=== PATIENT | female | born 1980 | race Caucasian/White ===

== ENCOUNTER 2019-12-10 19:35 | Inpatient (IN) | payer OTHER, SELFPAY ==
[2019-12-10 19:42] VITALS: BMI 29.8
[2019-12-10] MEDS: Lactated Ringers 1,000 ML 50 ML IV (20:30)
[2019-12-10] MEDS: miSOPROStol 25 MCG TABLET VAGINAL (20:43)
[2019-12-10 20:52] LABS: Absolute Lymphocyte Count 2.66 X10^3/uL (0.83-4.51); Absolute Neutrophil Count 6.5 X10^3/uL (2.0-7.7); Basophil# 0.07 X10^3/uL; Basophil% 0.7 % (0-1); Eosinophil# 0.07 X10^3/uL; Eosinophils% 0.7 % (0-5); Hematocrit 37.4 % (37-47); Hemoglobin 12.6 g/dL (12.0-15.0); Lymphocyte # 2.66 X10^3/ul (4.0); Lymphocyte % 26.7 % (19-41); Mean Corp Hgb Conc 33.7 g/dL (32-36); Mean Corpuscular Hgb 30.5 pg (27.0-32.0); Mean Corpuscular Volume 90.6 fL (81-99); Mean Platelet Vol. 10.4 fl (6.2-12.0); Monocyte# 0.63 X10^3/uL; Monocyte% 6.3 % (0-10); NRBC Flagged by Analyzer 0 % (0-5); Neutrophil # 6.47 X10^3/uL (2.7-7.7); Neutrophil % 64.9 % (47-70); Platelet Count 246 K/mm3 (150-450); RBC Distribution Width CV 13.3 % (11.6-14.6); RBC Distribution Width SD 43.8 fl (35.1-43.9); Red Blood Count 4.13 M/mm3 (4.2-5.4)
[2019-12-11] MEDS: Lactated Ringers 500 ML 999 ML IV ×3 (03:23→10:44)
[2019-12-11] MEDS: 0.9% Saline Lock 10 ML Syringe IV (03:28)
[2019-12-11] MEDS: Ondansetron 4 MG/2 ML Vial IV (03:46)
[2019-12-11] MEDS: fentaNYL-bupivacaine (epidural) 100 ML BAG EPIDURAL ×2 (04:20→08:55)
--- NOTE | 2019-12-11 07:07 | PCM.HP.OB ---
- Problem List (1) Hypothyroidism Status: Acute (2) Bipolar disease in Status: Acute (3) Advanced maternal age (AMA) in Status: Acute (4) Polyhydramnios Status: Acute History Date of Admission: 12/10/19 Final RANJIT: 12/17/19 Gestational age: 39 Weeks and 1 Days History of this : This is a 39 year-old, G1, P0, at 39 weeks gestational age who presents for scheduled IOL for AMA and polyhydramnios. Allergies haloperidol [From Haldol] Allergy (Verified 12/10/19 19:44) Hives methylchloroisothiazolinone Allergy (Verified 12/10/19 19:51) Hives methylisothiazolinone Allergy (Verified 12/10/19 19:51) Hives Penicillins Allergy (Verified 12/10/19 19:44) Hives thimerosal Allergy (Verified 12/10/19 19:50) Hives Home Medications: Home Medications Levothyroxine Sodium [Synthroid] 125 mcg PO DAILY 12/10/19 Pnv No.95/Ferrous Fum/Folic AC [ Formula Tablet] 1 tab PO DAILY 12/10/19 Smoking Status: Never smoker Number of Fetus(es): 1 NST - FHR Rate Baby A NST Reactive:: Yes FHR Category:: Category I History Past Pregnancies: Past Pregnancies Delivery Date Name GA/ Weeks Outcome Route Wt Infant Sex Labor Length Anesthesia Delivery Location Provider FOB Labs: GBS neg YELITZA 28 cm, EFW 96% LGA Hgb 11.1 1 hr GTT 89 NIPT neg Syphilis NR RI Hep B neg HIV NR Rh positive Ab screen neg UDS neg GC/CT neg Expected Delivery Method: Spontaneous Vaginal Review of Systems Gynecological: Reports: - - +CTx and FM. No vb, lof Physical Exam General: Alert, No apparent distress HEENT: Atraumatic Abdomen: Soft, Non Tender, Gravid Extremities:: No edema Neurological: Neuro grossly intact Presentation: Cephalic Cervix Dilation (cm): 3 - per RN Station: -3 Assessment/Plan All Active Problems Hypothyroidism (Acute) Bipolar disease in (Acute) Advanced maternal age (AMA) in (Acute) Polyhydramnios (Acute) This is a 39 year-old, G 1, P 0, at 39 weeks gestational age who scheduled IOL for AMA and polyhydramnios. - YELITZA 28 cm, EFW 8 lb 4 oz at 37 wks - Admit for routine intrapartum care - Cytotec induction - GBS neg - Epidural prn - Pelvis adequate and EFW < 5000 g, anticipate
[2019-12-11] MEDS: Oxytocin 30 units/NS 500 ml 30 UNITS/500 ML IV.SOLN IV (07:23)
[2019-12-11] MEDS: Lactated Ringers 1,000 ML 200 ML IV (07:24)
[2019-12-11] MEDS: Oxytocin 30 units/NS 500 ml 30 UNITS/500 ML IV.SOLN 334 UNITS IV (13:20)
--- NOTE | 2019-12-11 13:53 | PCM.OPRPT ---
Vaginal Delivery Maternal Presentation: Medically Indicated Induction Method of Induction: Cytotec Medical Reason for Induction: - - advanced maternal age Amniotic Membrane Rupture Type: Artificial Amniotic Fluid Description: Clear Final RANJIT: 12/17/19 Gestational age: 39 Weeks and 1 Days Date of Procedure: 12/11/19 Pre-Operative Diagnosis: labor, maternal exhaustion Post-Operative Diagnosis: same Surgery/ Procedure Performed: Vacuum Assisted Vaginal Delivery - outlet Type of Anesthesia: Epidural Description of Procedure: Patient was complete and pushing for over 2 hours. When I arrived, the position was CARLOS. The head was labia approximately 3 cm and the skull was at +4 station. Penaloza catheter was in place, pelvis was felt to be clinically adequate and estimated weight was less than 4500 g. Epidural was adequate. Patient was giving good effort but had not made significant descent in over 30 minutes. I discussed with her and her at this point a trial of vacuum-assisted vaginal delivery. Our discussion, gave him some time to consider it and they desire to proceed. The vacuum was placed over the flexion point and the vacuum created to 550 mmHg. I pulled with 1 pull and no pop offs to . The vacuum was then removed. On the next contraction the patient delivered the head spontaneously over a second-degree perineal laceration. The remainder the was delivered with maternal pushing and gentle traction only in less than 15 seconds. The Pitocin infusion was initiated for active management of the third stage. The cord was clamped and cut after pulsations ceased. The was attended to by the waiting nursing staff. The placenta was delivered spontaneously and intact. The cervix was intact. The second-degree perineal laceration left vaginal vault laceration was repaired with 3-0 Vicryl suture in a running standard fashion. Sponge and needle counts were correct. A vaginal sweep was completed by me. Presentation: CARLOS Placental Delivery Description: Spontaneous Placenta Disposition: [facility] Cord Vessel Description: 3 Vessels Cord Entanglement: None Drain: Penaloza to straight drain Estimated Blood Loss: 500 Infant A gender: Male (1 minute): 8 - Angel (5 minute): 9 Episiotomy Description: None Laceration: Vaginal Extension/lac - left, 2nd degree Medications given after delivery: IV Pitocin Complications: None
[2019-12-11 17:12] VITALS: BP 113/64; PULSE 99; RESP 16; TEMP 36.6; O2SAT 100
--- NOTE | 2019-12-11 17:34 | NURSING ---
epidural catheter removed at this time. blue tip intact. Band-aid placed at epidural insertion site.
[2019-12-11] MEDS: Acetaminophen 500 MG Tablet 1000 MG PO (19:48)
[2019-12-11 20:15] VITALS: BP 110/67; PULSE 62; RESP 16; TEMP 37.2
[2019-12-11] MEDS: Naproxen 250 MG Tablet 500 MG PO (20:30)
[2019-12-11 23:50] VITALS: BP 124/77; PULSE 90; RESP 16; TEMP 37.2
[2019-12-12 03:01] VITALS: BP 97/58; PULSE 70; RESP 16; TEMP 36.9
[2019-12-12] MEDS: Acetaminophen 500 MG Tablet 1000 MG PO ×2 (03:49→15:32)
[2019-12-12] MEDS: Naproxen 250 MG Tablet 500 MG PO ×3 (04:12→22:08)
[2019-12-12] MEDS: Levothyroxine 125 MCG Tablet PO (06:02)
[2019-12-12 06:16] LABS: Hematocrit 33.7 % (37-47); Hemoglobin 11.6 g/dL (12.0-15.0); Mean Corp Hgb Conc 34.4 g/dL (32-36); Mean Corpuscular Hgb 31.3 pg (27.0-32.0); Mean Corpuscular Volume 90.8 fL (81-99); Mean Platelet Vol. 10.1 fl (6.2-12.0); Platelet Count 226 K/mm3 (150-450); RBC Distribution Width CV 13.3 % (11.6-14.6); RBC Distribution Width SD 43.6 fl (35.1-43.9); Red Blood Count 3.71 M/mm3 (4.2-5.4); White Blood Count 20.3 K/mm3 (4.4-11.0)
[2019-12-12] MEDS: Senna/Docusate Sodium 1 Tablet PO (08:07)
[2019-12-12] MEDS: Dibucaine 30 GM Tube 1 APPLIC TOPICAL (08:08)
--- NOTE | 2019-12-12 08:28 | PCM.PN.OB ---
Patient Problems: Active and Suspected Problems Hypothyroidism (Acute) Bipolar disease in (Acute) Advanced maternal age (AMA) in (Acute) Polyhydramnios (Acute) Subjective: Patient doing well. Perineum is sore. Pain is well controlled. Ambulating and voiding without difficulty. Tolerating regular diet without nausea or vomiting. She denies lightheadedness, dizziness, chest pain, shortness of breath, leg pain. Lochia normal. She is breast-feeding. - Physical Exam Vitals/I&O's: Vital Signs Temp Pulse Resp BP Pulse Ox 98.5 F 70 16 97/58 L 100 12/12/19 03:01 12/12/19 03:01 12/12/19 03:01 12/12/19 03:01 12/11/19 17:12 Oxygen Delivery Method Room Air Weight: 202 lb 3.2 oz Body Mass Index (BMI) 29.8 Intake and Output for Last 24 Hours 12/10/19 12/11/19 12/12/19 23:59 23:59 23:59 Intake Total 4872.44 / 4872.44 Output Total 6550 / 6550 Balance -1677.56 / -1677.56 General: Alert, No apparent distress HEENT: Atraumatic Abdomen: Soft, Non Tender, - - FF@U-1 Extremities: No edema, No Calf Tenderness Skin: No rashes Neurological: Neuro grossly intact Psych/Mental Status: Normal Affect, Appropriate Laboratory Results 12/12/19 06:06: WBC 20.3 H, RBC 3.71 L, Hgb 11.6 L, Hct 33.7 L, MCV 90.8, MCH 31.3, MCHC 34.4, RDW Std Deviation 43.6, RDW Coeff of Howard 13.3, Plt Count 226, MPV 10.1 Current Medications Acetaminophen (Tylenol) 1,000 mg PO Q8H PRN PRN PRN Reason: Pain Score 1-3/10 Last Admin: 12/12/19 03:49 Dose: 1,000 mg Documented by: Bisacodyl (Dulcolax) 10 mg RECTAL UD PRN PRN Reason: If no BM Dibucaine (Dibucaine) 1 applic TOPICAL TID PRN PRN; Protocol PRN Reason: Discomfort Last Admin: 12/12/19 08:08 Dose: 1 applicatio Documented by: Hydrocortisone (Hytone) 1 applic TOPICAL TID PRN PRN; Protocol PRN Reason: Discomfort Levothyroxine Sodium (Synthroid) 125 mcg PO DAILY@0600 KODY Last Admin: 12/12/19 06:02 Dose: 125 mcg Documented by: Methylergonovine Maleate (Methergine) 0.2 mg IM X1 PRN PRN Reason: Excess bleeding/uterine atony Naproxen (Naprosyn) 500 mg PO Q8H PRN PRN PRN Reason: Pain Score 1-3/10 Last Admin: 12/12/19 04:12 Dose: 500 mg Documented by: Ondansetron HCl (Zofran) 4 mg IV Q4H PRN PRN PRN Reason: Nausea Oxycodone HCl (Oxyir) 5 - 10 mg PO Q4H PRN PRN PRN Reason: Pain Score 4-10/10 Senna/Docusate Sodium (Senokot-S, Tasha-Colace) 1 - 2 tablet PO DAILY PRN PRN PRN Reason: Constipation Last Admin: 12/12/19 08:07 Dose: 2 tablet Documented by: Simethicone (Mylicon) 80 mg PO PCHS PRN PRN Reason: Indigestion/Stomach pain Sodium Chloride () 5 - 15 ml IV UD PRN PRN Reason: SALINE FLUSH Medical Necessity - Tobacco Use Smoking Status: Never smoker Assessment/Plan All Active Problems Hypothyroidism (Acute) Bipolar disease in (Acute) Advanced maternal age (AMA) in (Acute) Polyhydramnios (Acute) PPD#1 s/p - Doing well - with difficultly latching. to see today - Dispo: Routine care
[2019-12-12 08:29] VITALS: BP 105/61; PULSE 74; RESP 16; TEMP 36.6
[2019-12-12 11:45] VITALS: BP 114/57; PULSE 97; RESP 14; TEMP 36.9
--- NOTE | 2019-12-12 13:50 | CASEMGMT ---
Social Work Labor and Delivery Unit Notified by nursing staff of need for social work consult due to maternal history of bipolar disorder. Chart has been reviewed. Noted that mother of baby (MOB) is a Do Not Publish status. This singer songwriter had planned to see MOB this afternoon for assessment, however at this singer songwriter walking to the room noted that father of baby greeted 4 visitors at the unit door and led the visitors back to MOB's room. Plan: Attempt to see MOB later today as time allows, or see tomorrow 12.13.2019. -BRAEDEN Johnston, FILTER WASHER
[2019-12-12 18:12] VITALS: BP 105/50; PULSE 82; RESP 16; TEMP 36.9
[2019-12-12 19:50] VITALS: BP 125/58; PULSE 90; RESP 16; TEMP 37.1
[2019-12-13] MEDS: Acetaminophen 500 MG Tablet 1000 MG PO ×2 (00:27→12:30)
[2019-12-13 01:15] VITALS: BP 91/51; PULSE 70; RESP 16; TEMP 36.7
[2019-12-13] MEDS: Levothyroxine 125 MCG Tablet PO (06:16)
[2019-12-13] MEDS: Naproxen 250 MG Tablet 500 MG PO (07:43)
--- NOTE | 2019-12-13 07:51 | PCM.PN.OB ---
Patient Problems: Active and Suspected Problems Hypothyroidism (Acute) Bipolar disease in (Acute) Advanced maternal age (AMA) in (Acute) Polyhydramnios (Acute) Subjective: He is doing well. Ambulating and voiding without difficulty. Tolerating regular diet without nausea or vomiting. Denies lightheadedness, dizziness, chest pain, shortness of breath, leg pain. She is breast-feeding. Lochia normal. - Physical Exam Vitals/I&O's: Vital Signs Temp Pulse Resp BP Pulse Ox 98.0 F 70 16 91/51 L 100 12/13/19 01:15 12/13/19 01:15 12/13/19 01:15 12/13/19 01:15 12/11/19 17:12 Oxygen Delivery Method Room Air Weight: 202 lb 3.2 oz Body Mass Index (BMI) 29.8 Intake and Output for Last 24 Hours 12/11/19 12/12/19 12/13/19 23:59 23:59 23:59 Intake Total 4872.44 / 4872.44 Output Total 6550 / 6550 Balance -1677.56 / -1677.56 General: Alert, No apparent distress HEENT: Atraumatic Abdomen: Soft, Non Tender, - - FF@U-1 Extremities: No edema, No Calf Tenderness Skin: No rashes Neurological: Neuro grossly intact Psych/Mental Status: Normal Affect, Appropriate Current Medications Acetaminophen (Tylenol) 1,000 mg PO Q8H PRN PRN PRN Reason: Pain Score 1-3/10 Last Admin: 12/13/19 00:27 Dose: 1,000 mg Documented by: Bisacodyl (Dulcolax) 10 mg RECTAL UD PRN PRN Reason: If no BM Dibucaine (Dibucaine) 1 applic TOPICAL TID PRN PRN; Protocol PRN Reason: Discomfort Last Admin: 12/12/19 08:08 Dose: 1 applicatio Documented by: Hydrocortisone (Hytone) 1 applic TOPICAL TID PRN PRN; Protocol PRN Reason: Discomfort Levothyroxine Sodium (Synthroid) 125 mcg PO DAILY@0600 KODY Last Admin: 12/13/19 06:16 Dose: 125 mcg Documented by: Methylergonovine Maleate (Methergine) 0.2 mg IM X1 PRN PRN Reason: Excess bleeding/uterine atony Naproxen (Naprosyn) 500 mg PO Q8H PRN PRN PRN Reason: Pain Score 1-3/10 Last Admin: 12/13/19 07:43 Dose: 500 mg Documented by: Ondansetron HCl (Zofran) 4 mg IV Q4H PRN PRN PRN Reason: Nausea Oxycodone HCl (Oxyir) 5 - 10 mg PO Q4H PRN PRN PRN Reason: Pain Score 4-10/10 Senna/Docusate Sodium (Senokot-S, Tasha-Colace) 1 - 2 tablet PO DAILY PRN PRN PRN Reason: Constipation Last Admin: 12/12/19 08:07 Dose: 2 tablet Documented by: Simethicone (Mylicon) 80 mg PO PCHS PRN PRN Reason: Indigestion/Stomach pain Sodium Chloride () 5 - 15 ml IV UD PRN PRN Reason: SALINE FLUSH Medical Necessity - Tobacco Use Smoking Status: Never smoker Assessment/Plan All Active Problems Hypothyroidism (Acute) Bipolar disease in (Acute) Advanced maternal age (AMA) in (Acute) Polyhydramnios (Acute) Patient is day 2 from a vacuum-assisted vaginal delivery. She is doing well and desires to go home. Discharge instructions reviewed.
--- NOTE | 2019-12-13 07:53 | DCINST_ITS ---
Discharge Diet: No Restrictions Discharge Activity: May Drive, May Shower, May Take a Tub Bath May resume sexual activity in: 6 weeks Ice area for (Minutes): 15 Weight Bearing Status: Full weight bearing Lifting Restrictions: None Call your doctor if you observe: Fever of 101 or Higher, Inability to urinate, Inability to have a bowel movement, Using more than one pad per hour, Shortness of breath, Dizziness, Chest pain, Increased palpitations (irregular heartbeat), Calf discomfort, Uncontrolled pain Cleanse incision/area with: Soap & Water Additional Instructions: If you experience any of the following, contact your healthcare provider. * Bleeding that soaks a pad every hour for 2 hours * Fever 100.4 or higher * Unrelieved incision or abdominal pain * Swelling, redness, discharge or bleeding from your incision or episiotomy site * Your incision begins to separate * Problems urinating (including inability to urinate or burning while urinating). * Visual changes * Severe headache * Flu-like symptoms * Pain or redness in one of both of your breasts * Pain, warmth, tenderness or swelling in your legs, especially the calf area * Frequent nausea and vomiting * Symptoms of depression or anxiety If you experience any of the following, call 911 or go to the nearest Emergency Room. * Chest pain * Problems breathing * Seizure activity * Partial or complete paralysis of a body part, slurred speech, weakness or drooping of the face, or a sudden inability to walk or hold your balance Allergies/Adverse Reactions: Allergies haloperidol [From Haldol] Allergy (Verified 12/10/19 19:44) Hives methylchloroisothiazolinone Allergy (Verified 12/10/19 19:51) Hives methylisothiazolinone Allergy (Verified 12/10/19 19:51) Hives Penicillins Allergy (Verified 12/10/19 19:44) Hives thimerosal Allergy (Verified 12/10/19 19:50) Hives Medications to take at Discharge Levothyroxine Sodium [Synthroid] 125 mcg PO DAILY 12/10/19 Pnv No.95/Ferrous Fum/Folic AC [ Formula Tablet] 1 tab PO DAILY 12/10/19 When: 1-2 weeks if you desires and in 6 weeks for visit Primary Care Physician: Roger Azar MD [Primary Care Provider] - Test Results: Test results from this visit will be discussed in further detail at your follow- up appointment, if applicable.
[2019-12-13 08:22] VITALS: BP 113/65; PULSE 87; RESP 18; TEMP 36.7
[2019-12-13 08:25] VITALS: PULSE 87; RESP 18
[2019-12-13 08:36] VITALS: BP 113/65; PULSE 87; RESP 16; TEMP 36.7
[2019-12-13 13:00] VITALS: BP 112/70; PULSE 81; RESP 16; TEMP 36.4
== END 2019-12-13 14:00 | disposition home or self-care (01) | DRG 807 ==
PROVIDERS: Obstetrics & Gynecology; Admitting Provider Obstetrics & Gynecology; PCP Family Medicine; Referring Provider Obstetrics & Gynecology; Visit Provider Obstetrics & Gynecology
DX: O75.81 Maternal exhaustion complicating labor and delivery (principal); Z37.0 Single live birth; E03.9 Hypothyroidism, unspecified; O99.284 Endocrine, nutritional and metabolic diseases complicating childbirth; Z3A.39 39 weeks gestation of pregnancy; O40.3XX0 Polyhydramnios, third trimester, not applicable or unspecified; Z79.899 Other long term (current) drug therapy; O70.1 Second degree perineal laceration during delivery; F31.9 Bipolar disorder, unspecified; O99.344 Other mental disorders complicating childbirth
CPT/HCPCS: 59025; 59050; 85025; 85027; 86850; 86900; 86901; 99218; J7120; A4216; G0378; J2405

== ENCOUNTER → 2019-12-27 15:10 | Outpatient (CLI) | payer OTHER, SELFPAY ==
[2019-12-10 19:42] VITALS: BMI 29.8
== END ==
PROVIDERS: PCP Family Medicine; Referring Provider Obstetrics & Gynecology; Visit Provider Obstetrics & Gynecology
DX: Z39.1 Encounter for care and examination of lactating mother (principal)
CPT/HCPCS: 96158

== ENCOUNTER 2020-05-30 18:15 | Outpatient (CLI) | payer OTHER, SELFPAY | END 2020-05-30 18:49 | disposition home or self-care (01) | LOC: TELEHEALTH 06-02 10:50 | PROVIDERS: PCP Family Medicine; Visit Provider Registered Nurse Lactation Consultant | DX: Z39.1 Encounter for care and examination of lactating mother (principal) | CPT/HCPCS: 96158; 96159 ==

== ENCOUNTER → 2022-06-29 | Outpatient (CLI) | payer SELFPAY ==
--- NOTE | 2022-06-29 12:05 | RAD_ITS ---
PROCEDURE: HYSTEROSALPINGOGRAM. REASON FOR EXAM: Female, 41 years old. Infertility. FLUOROSCOPY TIME (if supplied): (0:15) seconds STERILE BARRIER TECHNIQUE: The following sterile barrier precautions were used during the procedure: hand hygiene; use of 2% chlorhexidine aseptic; use of a cap, mask, sterile gown, sterile gloves, sterile full body drape, and a large sterile sheet. PROCEDURE/TECHNIQUE: The risks, benefits, and alternatives to the procedure were explained to patient, and the patient agreed to the procedure and signed a consent form for the procedure. A timeout was performed to confirm the patient''s identity, the type of procedure, to be performed and the site of entry. Injection Information: 50 mL of Omnipaque 300Mixture containing 0.2 mL of Omniscan, 10 mL of Omnipaque 300 and 10 mL of normal saline. Number of images obtained: 5 TECHNIQUE: Visualization of the cervix is performed using a speculum. A Betadine solution is used to cleanse the cervix orifice. Under fluoroscopic guidance a balloon catheter is inserted in the endometrial cavity the balloon is inflated with 3 cc of air. 10 mL of Omnipaque 300 were injected in the endometrial cavity. FINDINGS: There is normal opacification of the endometrial cavity. Both fallopian tubes are opacified. Peritoneal spill is seen bilaterally. There is venous backflow noted in the myometrium bilaterally. RAD/Salpingogram IMPRESSION: Patent fallopian bilaterally. Electronically Signed: Munir Garcia MD at 16:19 EDT ,
== END | disposition home or self-care (01) ==
PROVIDERS: PCP Family Medicine; Referring Provider Obstetrics & Gynecology; Visit Provider Obstetrics & Gynecology
DX: N97.9 Female infertility, unspecified (principal)
CPT/HCPCS: 58340; 74740; Q9967